=== PATIENT | female | born 1980 | race Caucasian/White ===

== ENCOUNTER → 2017-08-14 | Outpatient (CLI) | payer BC ==
[~2017-08-14] MED LIST: BYSTOLIC5 MG PO; FISH OIL1000 MG PO; LEXAPRO 10MG10 MG PO; MOTRIN 800800 MG/TAB PO; MULTIPLE VITAMI1 CAP PO; NORCO 325 MG-7.1 TAB PO; PERCOCET 325 MG1 TA2 PO; PRENATAL VITAMI1 TA5 PO
== END ==
LOC: COL.RAD 12:18
DX: M43.24 Fusion of spine, thoracic region (principal); M41.84 Other forms of scoliosis, thoracic region; M46.87 Other specified inflammatory spondylopathies, lumbosacral region; M43.17 Spondylolisthesis, lumbosacral region; S39.012A Strain of muscle, fascia and tendon of lower back, initial encounter

== ENCOUNTER → 2018-03-01 | Outpatient (CLI) | payer BC | LOC: MC.RAD 10:00 | DX: Z12.31 Encounter for screening mammogram for malignant neoplasm of breast (principal) ==

== ENCOUNTER 2018-07-15 14:06 | Emergency (ER) | payer BC ==
[~2018-07-15] VITALS: Ht 152.4 cm; Wt 89.1 kg
[2018-07-15 14:09] VITALS: TEMP 98.6
[2018-07-15 14:51] LABS: ALANINE AMINOTRANSFERASE 32 U/L (9-52); ALBUMIN 4.2 gm/dL (3.5-5.0); ALKALINE PHOSPHATASE 72 U/L (50-136); ANION GAP 11 mmol/L (7-16); AST,SGOT 26 U/L (15-37); BILIRUBIN,TOTAL 0.4 mg/dL (0.0-1.0); BLOOD UREA NITROGEN 10 mg/dL (7-17); C-REACTIVE PROTEIN 5.4 mg/dL (0.0-0.9); CARBON DIOXIDE 20 mmol/L (22-30); CHLORIDE 109 mmol/L (98-107); CREATININE, serum 0.62 (0.52-1.25); GLUCOSE 106 mg/dL (74-106); LIPASE 94 U/L (23-300); POTASSIUM 3.8 mmol/L (3.4-5.0); SODIUM 140 mmol/L (137-145); TOTAL PROTEIN 7.8 gm/dL (6.4-8.2)
[2018-07-15 14:55] LABS: BASO % 0.2 % (0.0-2.0); GRAN # 5.2 (1.4-6.5); HEMATOCRIT 43.6 % (37.0-47.0); HEMOGLOBIN 14.7 g/dl (12.5-16.0); LYMPH # 0.5 (1.2-3.4); LYMPH % 8.4 % (20.0-51.0); MEAN CELL VOLUME 85 fl (80.0-100.0); MEAN CORPUSCULAR HEMOGLOBIN 29 pg (27.0-31.0); MEAN CORPUSCULAR HGB CONC 34 g/dl (33.0-37.0); MEAN PLATELET VOLUME 10.8 fl (7.4-10.4); MONO # 0.4 (0.1-0.6); MONO % 5.9 % (1.7-9.3); PLATELET COUNT 176 K/mm3 (130-400); RED BLOOD COUNT 5.11 M/mm3 (4.10-5.30)
[2018-07-15 15:05] LABS: TROPONIN-I < 0.012 ng/mL (0.000-0.035)
[2018-07-15 15:34] LABS: COLLECTION METHOD CLEAN CATCH
[2018-07-15 15:44] LABS: PH 5 (5-8); SQUAMOUS EPITHELIAL None Seen /hpf; URINE APPEARANCE Clear; URINE BACTERIA None Seen /hpf; URINE BILIRUBIN Negative (NEGATIVE); URINE BLOOD Negative (NEGATIVE); URINE COLOR Straw; URINE GLUCOSE Negative (NEGATIVE); URINE KETONE Negative (NEGATIVE); URINE LEUKOCYTE ESTERASE Negative (NEGATIVE); URINE NITRATE Negative (NEGATIVE); URINE PROTEIN(semi-quant) Negative (NEGATIVE); URINE RBC 0-2 /hpf; URINE UROBILINOGEN Negative (NEGATIVE)
[2018-07-15] MEDS ORDERED: NORCO 325 MG-51 TAB PO (16:19)
[2018-07-15 16:27] VITALS: BP 122/81; PULSE 63
== END 2018-07-15 16:29 | disposition home or self-care (01) ==
LOC: COL.ER 14:06
PROVIDERS: Family Medicine
DX: K80.50 Calculus of bile duct without cholangitis or cholecystitis without obstruction (principal); I10 Essential (primary) hypertension
CPT/HCPCS: C9113; J2270; J2405; J7030

== ENCOUNTER 2018-07-22 05:37 | Day surgery (SDC) | payer BC ==
[2018-07-22] VITALS (8 sets, daily range): BP systolic 105–126; BP diastolic 69–96; PULSE 48–68; TEMP 97.2–97.6
[~2018-07-22] VITALS: Ht 152.4 cm; Wt 88.9 kg
[~2018-07-22 05:37] MED LIST changes: +NORCO 325 MG-51 TAB PO
--- NOTE | 2018-07-22 06:39 | NUR ---
Resting on cart and awaits surgery. Spouse in room.
[2018-07-22] MEDS ORDERED: EPA FISH OIL1 SGL PO (06:40)
[2018-07-22] MEDS ORDERED: MULTIPLE VITAMI1 CAP PO (06:40)
[2018-07-22] MEDS ORDERED: VISION FORMULA1 EAC1 PO (06:41)
[2018-07-22] MEDS ORDERED: NORCO 325 MG-51 TAB PO (08:14)
--- NOTE | 2018-07-22 09:10 | NUR ---
Patient returns to room 8 per cart from PACU and is complaining of right upper quadrant pain at 5-6/10. Bandaids x3 clean and dry on the abdomen. IV fluids infusing #20G LW. Siderails up x2 and call light in reach. Spouse in room and will get pain medication. Denies nausea.
--- NOTE | 2018-07-22 09:11 | NUR ---
Initial visit; Patient and her thanked Tablet Making Machine Operator for offering encouragement and prayer prior to her surgical procedure.
--- NOTE | 2018-07-22 09:25 | NUR ---
States that the pain is the same and warm blankets on the right upper quadrant and back. Taking few ice chips.
--- NOTE | 2018-07-22 09:27 | NUR ---
Morphine 2mg IV given for complaints of pain from right upper quadrant and incisional pain.
--- NOTE | 2018-07-22 09:40 | NUR ---
More relaxed and resting without further complaints of pain.
--- NOTE | 2018-07-22 09:55 | NUR ---
Resting and offers no complaints of pain or nausea.
--- NOTE | 2018-07-22 10:10 | NUR ---
Continues to rest and offers no complaints of pain or nausea.
--- NOTE | 2018-07-22 10:40 | NUR ---
More awake and taking toast and pudding. Denies nausea.
--- NOTE | 2018-07-22 11:03 | NUR ---
Medicated with [place] 5mg one tab for incisional soreness. Rates pain at 3-4/10.
--- NOTE | 2018-07-22 11:30 | NUR ---
IV discontinued and given dismissal instructions for home cares and follow up appointment. Provided office number for questions and concerns. Given script for [place] and instructed to take with food.
--- NOTE | 2018-07-22 11:40 | NUR ---
Patient dresses self. Continues to deny pain or nausea.
--- NOTE | 2018-07-22 11:50 | NUR ---
Patient dismissed to home driven by spouse with instructions in hand. Taken to the front door per wheelchair and assisted into car by RN.
== END 2018-07-22 11:50 | disposition home or self-care (01) ==
LOC: SDCO 05:37
DX: K80.10 Calculus of gallbladder with chronic cholecystitis without obstruction (principal); Z79.899 Other long term (current) drug therapy; G47.33 Obstructive sleep apnea (adult) (pediatric); I10 Essential (primary) hypertension; Z90.49 Acquired absence of other specified parts of digestive tract; Z80.0 Family history of malignant neoplasm of digestive organs; F41.9 Anxiety disorder, unspecified; F32.9 Major depressive disorder, single episode, unspecified; Z87.442 Personal history of urinary calculi
CPT/HCPCS: J0330; J0690; J1100; J1885; J2270; J2405; J2704; J2710; J3010; J7120

== ENCOUNTER → 2019-03-24 | Outpatient (CLI) | payer BC ==
[~2019-03-24] MED LIST changes: +EPA FISH OIL1 SGL PO; +VISION FORMULA1 EAC1 PO
== END ==
LOC: MC.RAD 08:07
DX: Z12.31 Encounter for screening mammogram for malignant neoplasm of breast (principal); N64.89 Other specified disorders of breast; R92.0 Mammographic microcalcification found on diagnostic imaging of breast

== ENCOUNTER → 2019-03-31 | Outpatient (CLI) | payer BC | LOC: MC.RAD 13:56 | DX: N64.89 Other specified disorders of breast (principal) ==

== ENCOUNTER → 2020-04-04 | Outpatient (CLI) | payer BC | LOC: MC.RAD 08:30 | DX: D24.1 Benign neoplasm of right breast (principal) ==

== ENCOUNTER → 2021-05-16 | Outpatient (CLI) | payer BC | LOC: MC.RAD 11:25 | DX: Z12.31 Encounter for screening mammogram for malignant neoplasm of breast (principal); N64.89 Other specified disorders of breast ==

== ENCOUNTER → 2021-05-19 | Outpatient (CLI) | payer BC | LOC: MC.RAD 09:26 | DX: N64.89 Other specified disorders of breast (principal) ==

== ENCOUNTER → 2022-06-05 | Outpatient (CLI) | payer BC | LOC: MC.RAD 13:15 | DX: Z12.31 Encounter for screening mammogram for malignant neoplasm of breast (principal) ==

== ENCOUNTER 2022-07-28 21:56 | Observation (INO) | payer BC ==
[~2022-07-28] VITALS: Ht 152.4 cm; Wt 98.8 kg
[~2022-07-28 21:56] MED LIST changes: -LEXAPRO 10MG10 MG PO; +LEXAPRO20 MG PO; +MULTIPLE VITAMI1 TA5 PO
[2022-07-28 22:53] LABS: COLLECTION METHOD CLEAN CATCH
[2022-07-28 22:59] LABS: MUCOUS Present (NOT PRESENT); URINE BACTERIA Moderate /hpf (NONE SEEN); URINE RBC >50 /hpf (0-2)
[2022-07-28 23:00] LABS: URINE APPEARANCE Cloudy (CLEAR/HAZY); URINE COLOR Amber (YELLOW); URINE GLUCOSE Negative (NEGATIVE); URINE KETONE 1+ (NEGATIVE); URINE PROTEIN(semi-quant) 3+ (NEGATIVE)
[2022-07-28 23:01] LABS: URINE BLOOD 3+ (NEGATIVE); URINE NITRATE Positive (NEGATIVE)
[2022-07-28 23:15] LABS: ALBUMIN 3.3 gm/dL (3.5-5.0); BILIRUBIN,TOTAL 1.1 mg/dL (0.2-1.2); C-REACTIVE PROTEIN 29.59 mg/dL (0.00-0.50); CALCIUM 9.9 mg/dL (8.4-10.2); CREATININE, serum 1.07 mg/dL (0.57-1.11); POTASSIUM 3.8 mmol/L (3.5-4.5); TOTAL PROTEIN 7.4 gm/dL (6.2-8.1)
[2022-07-29] VITALS (13 sets, daily range): BP systolic 89–96; BP diastolic 52–57; PULSE 58–80; TEMP 97.7–98.2
[2022-07-29 01:17] LABS: BASO # 0.1 K/mm3 (0.0-0.2); BASO % 0.5 % (0.0-2.0); EOS % 0.2 % (0.0-4.0); GRAN # 10.4 K/mm3 (1.4-6.5); GRAN % 82.3 % (42.2-75.2); HEMATOCRIT 40.3 % (37.0-47.0); HEMOGLOBIN 13.3 g/dl (12.5-16.0); LYMPH % 7.6 % (20.0-51.0); MEAN CELL VOLUME 87 fl (80.0-100.0); MEAN CORPUSCULAR HEMOGLOBIN 29 pg (27-31); MEAN CORPUSCULAR HGB CONC 33 g/dl (33.0-37.0); MEAN PLATELET VOLUME 10.7 fl (7.4-10.4); MONO # 1.1 K/mm3 (0.1-0.6); MONO % 8.9 % (1.7-9.3); PLATELET COUNT 179 K/mm3 (130-400); RED BLOOD COUNT 4.62 M/mm3 (4.10-5.30); REDCELL DISTRIBUTION WIDTH-CV 13.2 % (11.5-14.5)
[2022-07-29] MEDS ORDERED: LASIX 20MG TABL20 MG PO (02:07)
[2022-07-29] MEDS ORDERED: LYRICA 50MG CAP50 MG PO (02:07)
[2022-07-29 04:43] LABS: HEMOGLOBIN 11.5 g/dl (12.5-16.0); MEAN CELL VOLUME 85 fl (80.0-100.0); MEAN CORPUSCULAR HEMOGLOBIN 29 pg (27-31); MEAN CORPUSCULAR HGB CONC 34 g/dl (33.0-37.0); MEAN PLATELET VOLUME 9.8 fl (7.4-10.4); PLATELET COUNT 129 K/mm3 (130-400); RED BLOOD COUNT 3.94 M/mm3 (4.10-5.30); REDCELL DISTRIBUTION WIDTH-CV 13.2 % (11.5-14.5)
[2022-07-29 04:48] LABS: HEMATOCRIT 33.6 % (37.0-47.0)
[2022-07-29 04:57] LABS: CALCIUM 8.3 mg/dL (8.4-10.2); CREATININE, serum 0.92 mg/dL (0.57-1.11); MAGNESIUM 1.4 mg/dL (1.6-2.6); POTASSIUM 3.4 mmol/L (3.5-4.5)
--- NOTE | 2022-07-29 05:15 | NUR ---
PT ARRIVED TO THE MEDICAL FLOOR AROUND 0300HRS TO ROOM 318. PT A&O X 4; VSS FOR PT WITH A COUPLE OF LOW B/P'S; O2 RA. PT COMPLAINED OF A HEADACHE. HOSPITALIST CALLED. COMPAZINE ORDERED AND GIVEN. PT ALSO HAD SOME N,V. ZOFRAN GIVEN, BUT WAS INEFFECTIVE FOR PT. HOSPITALIST CALLED. PHENERGAN ORDERED AND GIVEN. PT ABLE TO REST AFTER THE COMPAZINE AND PHENERGAN. PT DENIED CHEST PAIN, PALPITATIONS, SOB, DIARRHEA OR DIZZINESS. ADMISSIONS ASSESSMENT AND MED REC COMPLETE. POC DISCUSSED WITH PT. PT VERBALIZED UNDERSTANDING. PT EXPRESSED NO ADDITIONAL NEEDS. CALL LIGHT WITHIN REACH.
[2022-07-29 05:35] LABS: BAND 21 % (0-10); LYMPHOCYTE 8 % (20.0-51.0); NEUTROPHILS 67 % (42.0-75.2); PLATELET ESTIMATE NORMAL (NORMAL)
--- NOTE | 2022-07-29 08:15 | NUR ---
Assessment completed. Pt a/o x4. Reports pain 1-2/10 and declines need for pain medication at this time. Denies nausea at this time but requesting zofran prior to breakfast which she'd like at 0915. IVF infusing to RAC without s/s complications.
--- NOTE | 2022-07-29 10:34 | NUR ---
Motrin administered for c/o headache. Rates pain 2/10 on pain scale.
--- NOTE | 2022-07-29 15:57 | NUR ---
Dr. Hernandez notified of patient's blood pressure readings today and orthostatic pressures. IVF increased to 125ml/hr.
--- NOTE | 2022-07-29 18:14 | NUR ---
Pt given phenergan IV for c/o of nausea at 1504- patient reports it was effective and denies nausea at this time. Mortrin administered for c/o headache at 1705, rating pain 3/10. Poor appetite today. Potassium and Magnesium lab called to Dr. Hernandez- new orders received. Denies needs at this time.
[2022-07-30] VITALS (12 sets, daily range): BP systolic 90–121; BP diastolic 58–75; PULSE 65–80; TEMP 97.7–98.7
--- NOTE | 2022-07-30 02:02 | NUR ---
Pt assessment completed around 2044. A&Ox4. Reports headache. Tylenol administered. Potassium IV fluids running through RAC. During assessment requested antiemetic medication as well. Belongings and call light are within reach.
[2022-07-30] MEDS ORDERED: LYRICA 50MG CAP50 MG PO (11:07)
[2022-07-30] MEDS ORDERED: VITAMIND3 5000 PO (11:10)
[2022-07-30 11:23] LABS: BASO # 0.1 K/mm3 (0.0-0.2); BASO % 0.5 % (0.0-2.0); EOS # 0.1 K/mm3 (0.0-0.7); EOS % 0.8 % (0.0-4.0); GRAN # 7.6 K/mm3 (1.4-6.5); GRAN % 81.4 % (42.2-75.2); HEMOGLOBIN 11.1 g/dl (12.5-16.0); LYMPH # 0.9 K/mm3 (1.2-3.4); LYMPH % 9.2 % (20.0-51.0); MEAN CELL VOLUME 88 fl (80.0-100.0); MEAN CORPUSCULAR HEMOGLOBIN 29 pg (27-31); MEAN CORPUSCULAR HGB CONC 33 g/dl (33.0-37.0); MEAN PLATELET VOLUME 10.6 fl (7.4-10.4); MONO # 0.7 K/mm3 (0.1-0.6); MONO % 7.8 % (1.7-9.3); PLATELET COUNT 163 K/mm3 (130-400)
[2022-07-30 11:33] LABS: HEMATOCRIT 33.4 % (37.0-47.0)
[2022-07-30 11:34] LABS: CALCIUM 8.3 mg/dL (8.4-10.2); CREATININE, serum 0.94 mg/dL (0.57-1.11); POTASSIUM 4.1 mmol/L (3.5-4.5)
--- NOTE | 2022-07-30 12:04 | NUR ---
Brazing Machine Setter met with Patient and at bedside to conduct Care Managment Assessment and discuss discharge planning. Patient lives in [place] with her , Saúl P:[phone] and children. PAtient is established with Dr. Collado for PCP and is covered by [facility] for insurance. Patient recieves Rx services through [employer]. Patient endorses the use of CPAP at home and denies the use of DME. Patient reports to be independent with ALD/IADLs prior to admission and reports having DPOAH at home. Discahrge Plan: Pending further treatment team assessment for discharge needs.
--- NOTE | 2022-07-30 12:32 | NUR ---
Initial visit: Nurse Gynecology stopped by room on rounds. Pt was resting on the side of the bed with friend and nurse in the room. Pt has no needs right now. Nurse Gynecology will follow up as needed.
[2022-07-31] VITALS (7 sets, daily range): BP systolic 99–123; BP diastolic 66–86; PULSE 62–78; TEMP 97.6–99
--- NOTE | 2022-07-31 08:00 | NUR ---
Patient is sitting on chair, alert and oriented x 4, VSS. States she wants to eat something like cream of wheat, not so much appetite. Assessment completed, no further needs at this time. Call light within reach.
[2022-07-31] MEDS ORDERED: CIPRO 500MG TA500 MG PO (11:18)
[2022-07-31 14:51] LABS: CALCIUM 8.9 mg/dL (8.4-10.2); CREATININE, serum 0.97 mg/dL (0.57-1.11)
[2022-07-31 15:04] LABS: BASO % 0.3 % (0.0-2.0); EOS # 0.1 K/mm3 (0.0-0.7); EOS % 0.8 % (0.0-4.0); GRAN # 5.7 K/mm3 (1.4-6.5); HEMOGLOBIN 10.9 g/dl (12.5-16.0); LYMPH # 1.1 K/mm3 (1.2-3.4); LYMPH % 13.9 % (20.0-51.0); MEAN CELL VOLUME 87 fl (80.0-100.0); MEAN CORPUSCULAR HEMOGLOBIN 29 pg (27-31); MEAN CORPUSCULAR HGB CONC 33 g/dl (33.0-37.0); MEAN PLATELET VOLUME 10.4 fl (7.4-10.4); MONO # 0.7 K/mm3 (0.1-0.6); MONO % 9.3 % (1.7-9.3); PLATELET COUNT 184 K/mm3 (130-400); REDCELL DISTRIBUTION WIDTH-CV 13.6 % (11.5-14.5)
--- NOTE | 2022-07-31 16:56 | NUR ---
Patient and were provided with discharge information. All questions answered. IV access discontinued.
== END 2022-07-31 16:40 | disposition home or self-care (01) ==
LOC: COL.ER 21:56 → MEDICAL 07-29 01:29
PROVIDERS: Emergency Medicine; Physician Assistant; Student in an Organized Health Care Education/Training Program; ADMIT Internal Medicine
DX: N12 Tubulo-interstitial nephritis, not specified as acute or chronic (principal); N30.90 Cystitis, unspecified without hematuria; E87.6 Hypokalemia; E83.42 Hypomagnesemia; R51.9 Headache, unspecified; I10 Essential (primary) hypertension; M79.7 Fibromyalgia; F32.A Depression, unspecified; Z79.899 Other long term (current) drug therapy
CPT/HCPCS: OP; G0378; J0696; J0744; J0780; J1650; J2405; J2550; J3010; J3475; J3480; J7030; Q9967